=== PATIENT | male | born 1975 | race Two or more races ===

== ENCOUNTER 2019-03-22 02:44 | Emergency (ER) | payer OTHER ==
[~2019-03-22] VITALS: Ht 188 cm; Wt 95.3 kg
[2019-03-22 02:50] VITALS: Ht 188 cm; Wt 95.3 kg
[2019-03-22 04:12] LABS: BASOPHIL % 0.6 % (0-2); PLATELET COUNT 243 x10^3mcL (130-400); RED CELL DISTRIBUTION WIDTH 13.5 % (11.5-14.5)
[2019-03-22 04:18] LABS: CALCIUM 8.7 mg/dL (8.5-10.1); CARBON DIOXIDE 32.3 mmol/L (21-32); CHLORIDE SERUM 107 mmol/L (98-107); CREATININE SERUM 0.9 mg/dL (0.7-1.3); GFR1 > 60 mL/min; GLUCOSE SERUM 106 mg/dL (74-106); POTASSIUM SERUM 4.3 mmol/L (3.5-5.1); SODIUM SERUM 145 mmol/L (136-145)
[2019-03-22 04:31] LABS: ALBUMIN 3.7 g/dL (3.4-5.0); ALKALINE PHOSPHATASE 49 U/L (46-116); ALT/SGPT 28 U/L (16-63); AST/SGOT 18 U/L (15-37); BILIRUBIN TOTAL 0.4 mg/dL (0.20-1.00); FREE T4 1.15 ng/dL (0.76-1.46); TOTAL PROTEIN, SERUM 6.9 g/dL (6.4-8.2)
[2019-03-22 06:19] LABS: microscopic required? NO
[2019-03-22 07:08] LABS: urine erythrocyte NEGATIVE (NEGATIVE)
[2019-03-22 07:15] LABS: AMPHETAMINE QUAL UR NONE DETECTED (See below)
[2019-03-22 07:34] VITALS: BP 116/71
== END 2019-03-22 08:15 | disposition short-term general hospital (02) ==
LOC: ED 02:44
PROVIDERS: Emergency Medicine
DX: G45.9 Transient cerebral ischemic attack, unspecified (principal); E03.9 Hypothyroidism, unspecified
CPT/HCPCS: 36415; 82962; 83880; 84439